=== PATIENT | female | born 1995 | race Caucasian/White ===

== ENCOUNTER 2022-07-09 10:20 | Emergency (ER) | payer OTHER ==
[2022-07-09] MEDS ORDERED: Dexamethasone 10 MG/ML VIAL ONE (13:46)
== END 2022-07-09 14:15 | disposition home or self-care (01) ==
LOC: MADERS 10:20
DX: J06.9 Acute upper respiratory infection, unspecified (principal); F17.210 Nicotine dependence, cigarettes, uncomplicated
CPT/HCPCS: 87081; 87430; 87804; 96372; 99283; J1100